=== PATIENT | female | born 1995 | race African-American/Black ===

== ENCOUNTER 2017-03-25 13:11 | Emergency (ER) | payer BC ==
[~2017-03-25] VITALS: Ht 175.3 cm; Wt 75.0 kg
[2017-03-25 13:12] VITALS: BP 113/69; PULSE 82; RESP 16; TEMP 98.3; O2SAT 99
[2017-03-25] MEDS ORDERED: TOPA100T11 PO (13:27)
[2017-03-25] MEDS ORDERED: KEPP10002 PO (13:27)
[2017-03-25 13:28] VITALS: RESP 16; O2SAT 100
--- NOTE | 2017-03-25 13:42 | PD ---
HPI Chief Complaint: Seizure Time Seen by Provider: 13:30 Travel History International Travel<30 days: No Contact w/Intl Traveler<30days: No Traveled to known affect area: No History of Present Illness HPI 21-year-old female patient with history of seizures, presents to the ER today because she apparently was wandering at her college. She states that she does not remember what happened but remembers waking up with other people around her. She thinks she may have had a seizure. Did take her seizure medications this morning. She denies any injuries or any other issues. Modifying Factors: None Associated Signs & Symptoms: Altered mental status Risk Factors: Seizure history PFSH Past Medical History Immunizations Current: Yes Seizures: Yes ?: Unknown LMP: 03/20/17 Past Surgical History Other Surgery: Yes (BRAIN) Social History Alcohol Use: Yes (OCC) Tobacco Use: No Substance Use: No Allergies-Medications (Allergen,Severity, Reaction): Coded Allergies: No Known Allergies (Verified Allergy, Unknown, 03/25/17) Reported Meds & Prescriptions Reported Meds & Active Scripts Active Reported Keppra (Levetiracetam) 1,000 Mg Tab 1,000 Mg PO BID Topamax (Topiramate) 100 Mg Tab 100 Mg PO BID Review of Systems Except as stated in HPI: all other systems reviewed are Neg Physical Exam Narrative GENERAL: Well-developed young -[place] female patient currently in mild distress. Awake, alert, oriented 3. SKIN: Focused skin assessment warm/dry. HEAD: Atraumatic. Normocephalic. EYES: Pupils equal and round. No scleral icterus. No injection or drainage. ENT: No nasal bleeding or discharge. Mucous membranes pink and moist. NECK: Trachea midline. No JVD. CARDIOVASCULAR: Regular rate and rhythm. No murmur appreciated. RESPIRATORY: No accessory muscle use. Clear to auscultation. Breath sounds equal bilaterally. GASTROINTESTINAL: Abdomen soft, non-tender, nondistended. Hepatic and splenic margins not palpable. MUSCULOSKELETAL: No obvious deformities. No clubbing. No cyanosis. No edema. NEUROLOGICAL: Awake and alert. No obvious cranial nerve deficits. Motor grossly within normal limits. Normal speech. PSYCHIATRIC: Appropriate mood and affect; insight and judgment normal. Data Data Last Documented VS Vital Signs Date Time Temp Pulse Resp B/P (MAP) Pulse Ox O2 Delivery O2 Flow Rate FiO2 03/25/17 13:28 16 100 Room Air 03/25/17 13:12 98.3 82 113/69 (84) Orders Orders Blood Glucose (03/25/17 13:24) Oximetry (03/25/17 13:24) Iv Access Insert/Monitor (03/25/17 13:24) Ecg Monitoring (03/25/17 13:24) Oxygen Administration (03/25/17 13:24) Basic Metabolic Panel (Bmp) (03/25/17 13:24) Ed Urine Pregnancytest Poc (03/25/17 13:30) Labs Laboratory Tests Test 03/25/17 13:40 Blood Urea Nitrogen 9 MG/DL Creatinine 0.91 MG/DL Random Glucose 76 MG/DL Calcium Level 8.8 MG/DL Sodium Level 141 MEQ/L Potassium Level 4.6 MEQ/L Chloride Level 111 MEQ/L Carbon Dioxide Level 21.4 MEQ/L Anion Gap 9 MEQ/L Estimat Glomerular Filtration Rate 94 ML/MIN MDM Medical Decision Making Medical Screen Exam Complete: Yes Emergency Medical Condition: Yes Medical Record Reviewed: Yes Interpretation(s) Laboratory Tests Test 03/25/17 13:40 Chloride Level 111 MEQ/L (98-107) Differential Diagnosis Seizure versus metabolic issues versus syncope Narrative Course Patient is now awake and oriented in the ER. She sounds like she had a post ictal period. Lab work did not show significant metabolic issues. Vital signs are stable. She is not . At this point, my plan would be to release her with follow-up to primary care physician. Return for any new issues as needed. The plan has been discussed with her and she states understanding. Diagnosis Primary Impression: Seizure Disposition: 01 DISCHARGE HOME Condition: Stable Tito Wang MD Mar 25, 2017 13:42
[2017-03-25 14:08] LABS: BICARBONATE 21.4 MEQ/L (21.0-32.0); POTASSIUM 4.6 MEQ/L (3.5-5.1)
[2017-03-25 15:00] VITALS: BP 110/78; O2SAT 97
== END 2017-03-25 15:56 | disposition home or self-care (01) ==
LOC: NEPE 13:11
DX: R56.9 Unspecified convulsions (principal); Z79.899 Other long term (current) drug therapy
CPT/HCPCS: 80048; 84703; 99283